=== PATIENT | female | born 1955 | race Caucasian/White ===

== ENCOUNTER 2021-07-31 13:06 | Emergency (ER) | payer OTHER ==
[~2021-07-31] VITALS: Ht 154.9 cm; Wt 59.0 kg
[2021-07-31 13:10] VITALS: BP 155/88
--- NOTE | 2021-07-31 13:11 | NUR ---
BIBA TAKEN TO BED 9
--- NOTE | 2021-07-31 13:16 | NUR ---
66 Y/O FEMALE BIBA C/O LEFT MIDDLE FINGER LAC WOUND WITH PAIN 05/24 DESCRIBES ACHING NON-RADIATING S/P INJURY X TODAY AT WORK. DENIES FEVER/CHILLS, DENIES N/V/D. DENIES PMH NKA
--- NOTE | 2021-07-31 13:21 | NUR ---
STAFF PHARMACIST AT PT BEDSIDE.
[2021-07-31] MEDS ORDERED: ACETAMINOPHEN 325 MG TAB PO ONE (13:50)
[2021-07-31] MEDS ORDERED: BACITRACIN OINT 500 UNITS/GM PKT TP ONE (13:50)
[2021-07-31] MEDS ORDERED: LIDOCAINE MPF 1% 10 MG/ML VIAL INJ ONE (13:50)
[2021-07-31] MEDS ORDERED: NAPR-54 PO (14:28)
[2021-07-31] MEDS ORDERED: CEPH-588 PO (14:28)
--- NOTE | 2021-07-31 14:50 | NUR ---
PT'S WOUND ON FINGER WAS DRESSED WITH BACITRACIN, NONADHERENT DRESSING, AND ADHERENT GAUZE ROLL. ER PA NOTIFIED.
--- NOTE | 2021-07-31 14:52 | NUR ---
Patient discharged with v/s stable. Written and verbal after care instructions given [facility] AFTER CARE and explained. Patient alert, oriented and verbalized understanding of instructions. Ambulatory with steady gait. All questions addressed prior to discharge. ID band removed. Patient advised to follow up with PMD. Rx of KEFLEX AND NAPROSYN given. Patient educated on indication of medication including possible reaction and side effects. Opportunity to ask questions provided and answered.
== END 2021-07-31 14:40 | disposition home or self-care (01) ==
LOC: MED 13:06
DX: S61.213A Laceration without foreign body of left middle finger without damage to nail, initial encounter (principal); E11.9 Type 2 diabetes mellitus without complications; I10 Essential (primary) hypertension; Z79.899 Other long term (current) drug therapy; Z88.5 Allergy status to narcotic agent; X58.XXXA Exposure to other specified factors, initial encounter; Y93.89 Activity, other specified; Y92.89 Other specified places as the place of occurrence of the external cause; Y99.8 Other external cause status
CPT/HCPCS: 12001; 73140; 90471; 90715; 99283; J2001; Q0092

== ENCOUNTER 2021-08-11 10:16 | Emergency (ER) | payer OTHER ==
[~2021-08-11] VITALS: Ht 154.9 cm; Wt 54.4 kg
[~2021-08-11 10:16] MED LIST: CEPH-588 PO; NAPR-54 PO
[2021-08-11 10:20] VITALS: BP 107/57
--- NOTE | 2021-08-11 10:24 | NUR ---
Patient being evaluated by BELLE at TRIAGE ROOM.
--- NOTE | 2021-08-11 10:25 | NUR ---
NO NEED NURSING INTERVENTIONS. SEEN & SUTURE REMOAVAL BY LYONS.
[2021-08-11 10:44] VITALS: BP 107/57
--- NOTE | 2021-08-11 10:44 | NUR ---
Patient discharged with v/s stable. Written and verbal after care instructions given and explained. Patient verbalized understanding. Ambulatory with steady gait. All questions addressed prior to discharge. Advised to follow up with PMD.
== END 2021-08-11 10:44 | disposition home or self-care (01) ==
LOC: MED 10:16
DX: S61.213D Laceration without foreign body of left middle finger without damage to nail, subsequent encounter (principal); E11.9 Type 2 diabetes mellitus without complications; I10 Essential (primary) hypertension; Z88.5 Allergy status to narcotic agent; Z79.899 Other long term (current) drug therapy; X58.XXXD Exposure to other specified factors, subsequent encounter
CPT/HCPCS: 99281

== ENCOUNTER 2024-02-01 09:25 | Emergency (ER) | payer OTHER ==
[~2024-02-01] VITALS: Ht 152.4 cm; Wt 59.9 kg
[~2024-02-01 09:25] MED LIST changes: +NAPR-337 PO; -NAPR-54 PO
[2024-02-01 09:37] VITALS: BP 173/65; PULSE 67; RESP 18; TEMP 97.7; O2SAT 99
[2024-02-01] MEDS: ACETAMINOPHEN 325 MG TAB PO ONE (10:28)
[2024-02-01] MEDS ORDERED: ACET-8905 PO (11:03)
[2024-02-01 11:10] VITALS: BP 173/65; PULSE 67; RESP 18; TEMP 97.7; O2SAT 99
== END 2024-02-01 11:10 | disposition home or self-care (01) ==
LOC: MED 09:25
DX: M17.12 Unilateral primary osteoarthritis, left knee (principal); M25.462 Effusion, left knee; E11.9 Type 2 diabetes mellitus without complications; I10 Essential (primary) hypertension; Z79.1 Long term (current) use of non-steroidal anti-inflammatories (NSAID); Z79.2 Long term (current) use of antibiotics; Z88.5 Allergy status to narcotic agent
CPT/HCPCS: 73562; 99283

== ENCOUNTER 2024-05-24 14:53 | Emergency (ER) | payer OTHER ==
[~2024-05-24] VITALS: Ht 152.4 cm; Wt 56.7 kg
[~2024-05-24 14:53] MED LIST changes: +ACET-8905 PO
[2024-05-24 15:22] VITALS: BP 165/83; PULSE 70; RESP 20; TEMP 98.5; O2SAT 98
[2024-05-24 16:10] LABS: BILIRUBIN,URINE NEGATIVE (NEGATIVE); BLOOD, URINE NEGATIVE (NEGATIVE); LEUKOCYTE ESTERASE ,URINE 1+ (NEGATIVE); NITRITE, URINE NEGATIVE (NEGATIVE); PROTEIN,URINE NEGATIVE (NEGATIVE); UGLUCOSE NEGATIVE (NEGATIVE); UROBILINOGEN,URINE 0.2 EU/dL (0.2 - 1)
[2024-05-24 16:17] LABS: APPEARANCE,URINE SLIGHTLY CLOUDY (CLEAR); COLOR,URINE AMBER (YELLOW)
[2024-05-24 16:22] LABS: BACTERIA,URINE 10-30 (MOD) /HPF (None Seen); RBC,URINE 0-5 /HPF (0-5); SQUAMOUS EPITHELIAL CELL,UR 4-10 (MOD) /LPF (0-3 (FEW))
[2024-05-24 17:18] LABS: BASOPHILS % (AUTO) 0.4 % (0.0-2.0); EOSINOPHILS # (AUTO) 0.1 K/uL (0-0.4); EOSINOPHILS % (AUTO) 0.9 % (0.0-4.0); HEMATOCRIT 35.8 % (36-48); HEMOGLOBIN 11.8 g/dL (12.0-16.0); LYMPHOCYTES # (AUTO) 2.1 K/uL (2.5-16.5); LYMPHOCYTES % (AUTO) 28.9 % (20.5-51.1); MEAN CORPUSCULAR HEMOGLOBIN 28 pg (27-31); MEAN CORPUSCULAR HGB CONC 33 g/dL (33-37); MEAN CORPUSCULAR VOLUME 85.5 fL (80-94); MONOCYTES # (AUTO) 0.6 K/uL (0.8-1.0); MONOCYTES % (AUTO) 8.7 % (1.7-9.3); NEUTROPHILS # (AUTO) 4.5 K/uL (1.8-7.7); NEUTROPHILS % (AUTO) 61.1 % (42.2-75.2); PLATELET COUNT (AUTO) 304 K/uL (140-450); RED BLOOD CELL COUNT(AUTO) 4.19 MIL/uL (4.20-5.40); RED CELL DISTRIBUTION WIDTH 14.6 % (11.6-13.7); WHITE BLOOD COUNT (AUTO) 7.3 K/uL (4.8-10.8)
[2024-05-24 17:31] LABS: ANION GAP 13.4 (8-16); CALCIUM 9.3 mg/dL (8.5-10.1); CHLORIDE 99 mmol/L (98-107); CREATININE 0.6 mg/dL (0.6-1.3); GLUCOSE 116 mg/dL (74-106); POTASSIUM 4.4 mmol/L (3.5-5.1); SODIUM SERUM 138 mmol/L (136-145); UREA NITROGEN, BLOOD 8 mg/dL (7-18)
[2024-05-24] MEDS ORDERED: CEPH-588 PO (18:36)
[2024-05-24] MEDS ORDERED: ACET500T99 PO (18:37)
[2024-05-24] MEDS: KETOROLAC 30 MG/ML VIAL IVP ONE (18:40)
[2024-05-24 23:30] VITALS: BP 138/69; PULSE 63; RESP 18; TEMP 98; O2SAT 95
== END 2024-05-24 23:30 | disposition home or self-care (01) ==
LOC: MED 14:53
DX: N39.0 Urinary tract infection, site not specified (principal); R13.10 Dysphagia, unspecified; Z96.698 Presence of other orthopedic joint implants; E11.9 Type 2 diabetes mellitus without complications; I10 Essential (primary) hypertension; E78.00 Pure hypercholesterolemia, unspecified; Z79.899 Other long term (current) drug therapy; Z88.5 Allergy status to narcotic agent
CPT/HCPCS: 36415; 70491; 80048; 81001; 85025; 87086; 96374; 99285; J1885; Q9967